=== PATIENT | female | born 1945 | race Caucasian/White ===

== ENCOUNTER 2016-11-05 10:17 | Outpatient (CLI) | payer MEDICARE, OTHER | END 2016-11-05 10:18 | disposition home or self-care (01) | DX: R00.0 Tachycardia, unspecified (principal); R53.83 Other fatigue ==

== ENCOUNTER 2018-08-20 13:15 | Outpatient (CLI) | payer MEDICARE, OTHER ==
--- NOTE | 2018-08-21 10:15 | DEXA Report ---
Reason: OSTEOPOROSIS Procedure Date: 08/20/2018 Accession Number: [id number] / [id number] Procedure: DEX - Dexa Spine and/or Hip CPT Code: FULL RESULT: EXAM: Dexa Spine and/or Hip DATE: 08/20/2018 1:44 PM CLINICAL HISTORY: OSTEOPOROSIS TECHNIQUE: Dual energy x-ray absorptiometry (DXA) was performed on a [employer] System. Regions measured are the AP Spine, femoral neck, and if needed forearm. COMPARISON: None. In accordance with the International Society for Clinical Densitometry (ISCD) guidelines, data from previous exams may be reanalyzed using current recommendations and techniques. This is done to allow a more accurate basis for comparison with the current study. FINDINGS: The data for the lumbar spine is as follows: BMD (g/cm/cm) T-SCORE Z-SCORE REGION L1 0.885 -2.0 -0.2 L2 1.134 -0.6 1.3 L3 1.186 -0.1 1.7 L4 1.093 -0.9 0.9 TOTAL 1.084 -0.8 1.0 NOTE: All evaluable vertebrae are used for classification The data for the hip is as follows: BMD (g/cm/cm) T-SCORE Z-SCORE REGION Neck 0.814 -1.6 0.2 TOTAL 0.783 -1.8 -0.1 NOTE: The femoral neck or total proximal femur, whichever is lowest, is used for classification. IMPRESSION: THE WHO CLASSIFICATION BASED ON THE INTERNATIONAL REFERENCE STANDARD IS OSTEOPENIA. THE FRACTURE RISK IS INCREASED. RECOMMENDATION: Patients with diagnosis of osteoporosis or osteopenia should have regular bone mineral density assessment. For those eligible for Medicare, routine testing is allowed once every 2 years. Testing frequency can be increased for patients who have rapidly progressing disease or for those who are receiving medical therapy to restore bone mass. COMMENT: World Health Organization (WHO) definitions for osteoporosis and osteopenia: NORMAL BMD: T-score at -1.0 or higher, fracture risk is low OSTEOPENIA BMD: T-score between -1.0 and -2.5, fracture risk is increased. OSTEOPOROSIS BMD: T-score at -2.5 or lower, fracture risk is high. National Osteoporosis Foundation recommends: 1. Obtain adequate dietary calcium (at least 1200 mg per day) and vitamin D (400-800 international units per day). 2. Participate, as appropriate, in regular weightbearing and muscle-strengthening exercise. 3. Avoid tobacco use and reduce alcohol and caffeine intake. 4. For more detailed information see the website at www.NOF.org.
== END 2018-08-20 13:16 | disposition home or self-care (01) ==
LOC: DI 13:15
PROVIDERS: ATTEND Family Medicine
DX: M85.89 Other specified disorders of bone density and structure, multiple sites (principal)
CPT/HCPCS: 77080

== ENCOUNTER 2018-08-20 13:17 | Outpatient (CLI) | payer MEDICARE, OTHER ==
--- NOTE | 2018-08-21 09:44 | Mammography Report ---
Reason: SCREENING MAMMO Procedure Date: 08/20/2018 Accession Number: [id number] / [id number] Procedure: ELEUTERIO - Screening Mammo w/Chuy CPT Code: FULL RESULT: EXAM: Screening Mammo w/Chuy DATE: 08/20/2018 1:59 PM CLINICAL HISTORY: Screening encounter. History of early menses. Family history of breast cancer in the mother at age 59 and a sister at age 70. History of benign left breast biopsy. TECHNIQUE: Bilateral CC and MLO views were obtained. COMPARISON: 09/14/2015 through 11/15/2009. FINDINGS: The breasts demonstrate scattered fibroglandular densities bilaterally. Postprocedural changes in the left breast are again seen. No suspicious masses, clustered microcalcifications, or regions of architectural distortion are identified. IMPRESSION: Benign findings RECOMMENDATION: Routine annual screening unless otherwise clinically indicated. BIRADS CATEGORY 2: Benign findings STANDARD QUALIFYING STATEMENTS: 1. This examination was not reviewed with the aid of Computer-Aided Detection (CAD). 2. A negative or benign imaging report should not delay biopsy if clinically suspicious findings are present. Consider surgical consultation if warrented. More than 5% of cancers are not identified by imaging. 3. Dense breasts may obscure an underlying neoplasm. 4. This examination was reviewed with the aid of 3D breast imaging (tomosynthesis).
== END 2018-08-20 13:18 | disposition home or self-care (01) ==
LOC: DI 13:17
PROVIDERS: ATTEND Family Medicine
DX: Z12.31 Encounter for screening mammogram for malignant neoplasm of breast (principal); Z80.3 Family history of malignant neoplasm of breast
CPT/HCPCS: 77063; 77067

== ENCOUNTER 2018-10-27 12:34 | Outpatient (CLI) | payer MEDICARE, OTHER ==
[2018-10-27 18:42] LABS: BASOPHILS # (AUTO) 0.1 10^3/uL (0.0-0.1); BASOPHILS % (AUTO) 0.7 %; EOSINOPHILS # (AUTO) 0.3 10^3/uL (0.0-0.7); EOSINOPHILS % (AUTO) 2.5 %; HGB - HEMOGLOBIN 15.5 g/dL (12.0-16.0); LYMPHOCYTES % (AUTO) 40.2 %; MEAN CORPUSCULAR HEMOGLOBIN 30.4 pg (27.0-31.0); MEAN CORPUSCULAR HGB CONC 33.3 g/dL (32.0-36.0); MEAN CORPUSCULAR VOLUME 91.4 fL (81.0-99.0); MONOCYTES # (AUTO) 0.6 10^3/uL (0.0-1.0); MONOCYTES % (AUTO) 6.4 %; NEUTROPHILS % (AUTO) 50.2 %; PLT - PLATELET COUNT 302 10^3/uL (130-450); RED BLOOD COUNT 5.08 10^6/uL (4.20-5.40); RED CELL DISTRIBUTION WIDTH 13.2 % (12.0-15.0); WHITE BLOOD COUNT 10.1 x10^3/uL (4.8-10.8)
[2018-10-27 19:31] LABS: VLDL CHOLESTEROL 31 mg/dL
[2018-10-27 19:32] LABS: ALBUMIN 3.9 g/dL (3.2-5.5); ALBUMIN/GLOBULIN RATIO 1.2 (1.0-2.2); ALKALINE PHOSPHATASE 95 IU/L (42-121); ALT ALANINE AMINOTRANSFERASE 32 IU/L (10-60); AST ASPARTATE AMINOTRANSFERASE 27 IU/L (10-42); BILIRUBIN,TOTAL 0.8 mg/dL (0.2-1.0); BUN - BLOOD UREA NITROGEN 19 mg/dL (6-20); CALCIUM 9.6 mg/dL (8.5-10.3); CARBON DIOXIDE - CO2 27 mmol/L (21-32); CHLORIDE 97 mmol/L (101-111); CHOL/HDL RATIO 2.8 (<4.4); CHOLESTEROL 196 mg/dL; CREATININE 0.8 mg/dL (0.4-1.0); GFR - MDRD 71 (>89); GLUCOSE 142 mg/dL (70-100); HDL CHOLESTEROL 71 mg/dL; LDL CHOLESTEROL,CALCULATED 94 mg/dL; LDL/HDL RATIO 1.3 (<4.4); SODIUM 139 mmol/L (135-145); TOTAL PROTEIN 7.1 g/dL (6.7-8.2)
== END 2018-10-27 12:35 | disposition home or self-care (01) ==
LOC: LAB.WCP 12:34
PROVIDERS: ATTEND Family Medicine
DX: R53.83 Other fatigue (principal); E78.5 Hyperlipidemia, unspecified
CPT/HCPCS: 36415; 80053; 80061; 83721; 84443; 85025

== ENCOUNTER 2018-11-06 15:14 | Outpatient (CLI) | payer MEDICARE, OTHER | END 2018-11-06 15:15 | disposition home or self-care (01) | LOC: LAB.WCP 15:14 | PROVIDERS: ATTEND Family Medicine | DX: R79.89 Other specified abnormal findings of blood chemistry (principal) | CPT/HCPCS: 36415; 84439; 84481; 86800 ==

== ENCOUNTER 2019-05-11 09:00 | Outpatient (CLI) | payer MEDICARE, OTHER | END 2019-05-11 23:59 | disposition home or self-care (01) | LOC: LAB.WCP 09:00 | PROVIDERS: ATTEND Family Medicine | DX: R94.6 Abnormal results of thyroid function studies (principal) | CPT/HCPCS: 36415; 84443 ==

== ENCOUNTER 2020-05-30 16:57 | Outpatient (CLI) | payer MEDICARE, OTHER ==
[2020-05-30 18:33] LABS: CALCIUM 9.3 mg/dL (8.5-10.3); CREATININE 0.9 mg/dL (0.4-1.0)
[2020-05-30 18:50] LABS: CREATININE,URINE 151.1 mg/dL; MICROALBUM/CREATININE RATIO,UR 75.4 ug/mg (<30.0); MICROALBUMIN,URINE 11.4 mg/dL (0-300.0)
[2020-05-30 19:58] LABS: HEMOGLOBIN A1c% 7.6 % (4.27-6.07)
== END 2020-05-30 23:59 | disposition home or self-care (01) ==
LOC: LAB.WCP 16:57
PROVIDERS: ATTEND Family Medicine
DX: E11.9 Type 2 diabetes mellitus without complications (principal)
CPT/HCPCS: 36415; 80048; 82043; 82570; 83036

== ENCOUNTER 2020-08-28 14:12 | Outpatient (CLI) | payer MEDICARE, OTHER ==
[2020-08-28 18:50] LABS: CALCIUM 9.5 mg/dL (8.5-10.3); CREATININE 1.1 mg/dL (0.4-1.0); POTASSIUM 3.9 mmol/L (3.5-5.0)
[2020-08-28 20:31] LABS: ESTIMATED AVERAGE GLUCOSE 166 mg/dL (70-100); HEMOGLOBIN A1c% 7.4 % (4.27-6.07)
== END 2020-08-28 23:59 | disposition home or self-care (01) ==
LOC: LAB.WCP 14:12
PROVIDERS: ATTEND Physician Assistant Medical
DX: E11.9 Type 2 diabetes mellitus without complications (principal)
CPT/HCPCS: 36415; 80048; 82043; 82570; 83036

== ENCOUNTER 2020-08-30 08:00 | Outpatient (CLI) | payer MEDICARE, OTHER ==
[2020-08-30 19:14] LABS: CREATININE,URINE 35.5 mg/dL; MICROALBUM/CREATININE RATIO,UR 8.5 ug/mg (<30.0); MICROALBUMIN,URINE 0.3 mg/dL (0-300.0)
== END 2020-08-30 23:59 | disposition home or self-care (01) ==
LOC: LAB.WCP 08:00
PROVIDERS: ATTEND Physician Assistant Medical
DX: E11.9 Type 2 diabetes mellitus without complications (principal)
CPT/HCPCS: 82043; 82570

== ENCOUNTER 2021-04-27 11:26 | Outpatient (CLI) | payer MEDICARE, OTHER ==
[2021-04-27 19:58] LABS: ESTIMATED AVERAGE GLUCOSE 160 mg/dL (70-100); HEMOGLOBIN A1c% 7.2 % (4.27-6.07)
== END 2021-04-27 23:59 | disposition home or self-care (01) ==
LOC: LAB.WCP 11:26
PROVIDERS: ATTEND Physician Assistant Medical
DX: E11.9 Type 2 diabetes mellitus without complications (principal)
CPT/HCPCS: 36415; 80053; 80061; 83036; 83721

== ENCOUNTER 2021-05-09 16:29 | Outpatient (CLI) | payer MEDICARE, OTHER ==
[2021-05-09 20:57] LABS: CALCIUM 9.8 mg/dL (8.5-10.3); CREATININE 0.9 mg/dL (0.4-1.0); POTASSIUM 5.2 mmol/L (3.5-5.0)
[2021-05-10 09:56] LABS: ALBUMIN 4.6 g/dL (3.2-5.5); ALBUMIN/GLOBULIN RATIO 1.4 (1.0-2.2); ALKALINE PHOSPHATASE 85 IU/L (42-121); ALT ALANINE AMINOTRANSFERASE 21 IU/L (10-60); AST ASPARTATE AMINOTRANSFERASE 22 IU/L (10-42); BILIRUBIN,TOTAL 0.5 mg/dL (0.2-1.0); BUN - BLOOD UREA NITROGEN 16 mg/dL (6-20); CALCIUM 9.9 mg/dL (8.5-10.3); CARBON DIOXIDE - CO2 27 mmol/L (21-32); CHLORIDE 100 mmol/L (101-111); CHOL/HDL RATIO 2.8 (<4.4); CHOLESTEROL 221 mg/dL; CREATININE 0.9 mg/dL (0.4-1.0); GFR - MDRD 61 (>89); GLUCOSE 111 mg/dL (70-100); HDL CHOLESTEROL 79 mg/dL; LDL CHOLESTEROL,CALCULATED 112 mg/dL; LDL/HDL RATIO 1.4 (<4.4); POTASSIUM 5.3 mmol/L (3.5-5.0); SODIUM 137 mmol/L (135-145); TOTAL PROTEIN 7.9 g/dL (6.7-8.2); TRIGLYCERIDES 152 mg/dL; VLDL CHOLESTEROL 30 mg/dL
== END 2021-05-09 16:30 | disposition home or self-care (01) ==
LOC: LAB.N 16:29
PROVIDERS: ATTEND Nurse Practitioner Family
DX: E11.9 Type 2 diabetes mellitus without complications (principal)
CPT/HCPCS: 36415; 80048; 80053; 80061; 83721

== ENCOUNTER 2021-10-30 12:36 | Outpatient (CLI) | payer MEDICARE, OTHER ==
--- NOTE | 2021-10-30 16:06 | Mammography Report ---
BILATERAL DIGITAL SCREENING MAMMOGRAM 3D/2D: 10/30/2021 CLINICAL: Routine screening. Comparison is made to exams dated: 08/20/2018 mammogram, 04/09/2016 mammogram, and 04/09/2012 mammogr am - [facility]. There are scattered fibroglandular elements in both breasts. No significant masses, calcifications, or other findings are seen in either breast. There has been no significant interval change. IMPRESSION: NEGATIVE There is no mammographic evidence of malignancy. A 1 year screening mammogram is recommended. This exam was interpreted at Station ID: [id number]. NOTE: For mammograms, a report in lay terms will be sent to the patient. Approximately 15% of breast malignancies will not be visualized mammographically. In the management of a palpable breast mass, a negative mammogram must not discourage biopsy of a clinically suspicious lesion. Electronically Signed By: hSarri al/joerad:10/30/2021 15:29:44 ACR BI-RADS Category 1: Negative 3341F PARENCHYMAL PATTERN: (A) - The breast(s) demonstrate(s) scattered fibroglandular densities. BI-RADS CATEGORY: (1) - 1 RECOMMENDATION: (ANNUAL) - Recommend routine annual screening mammography. [id number] 1 year screening LATERALITY: (B)
== END 2021-10-30 12:37 | disposition home or self-care (01) ==
LOC: DI.N 12:36
DX: Z12.31 Encounter for screening mammogram for malignant neoplasm of breast (principal)

== ENCOUNTER 2022-04-09 10:42 | Outpatient (CLI) | payer MEDICARE, OTHER ==
[2022-04-09 18:33] LABS: ALBUMIN 4.4 g/dL (3.2-5.5); ALBUMIN/GLOBULIN RATIO 1.5 (1.0-2.2); ALKALINE PHOSPHATASE 63 IU/L (42-121); ALT ALANINE AMINOTRANSFERASE 16 IU/L (10-60); AST ASPARTATE AMINOTRANSFERASE 21 IU/L (10-42); BILIRUBIN,TOTAL 0.7 mg/dL (0.2-1.0); BUN - BLOOD UREA NITROGEN 15 mg/dL (6-20); CALCIUM 9.7 mg/dL (8.5-10.3); CARBON DIOXIDE - CO2 28 mmol/L (21-32); CHLORIDE 103 mmol/L (101-111); CHOLESTEROL 183 mg/dL; CREATININE 0.9 mg/dL (0.4-1.0); GFR - MDRD 61 (>89); GLUCOSE 141 mg/dL (70-100); HDL CHOLESTEROL 62 mg/dL; LDL CHOLESTEROL,CALCULATED 96 mg/dL; LDL/HDL RATIO 1.5 (<4.4); POTASSIUM 4.3 mmol/L (3.5-5.0); SODIUM 140 mmol/L (135-145); TOTAL PROTEIN 7.4 g/dL (6.7-8.2); TRIGLYCERIDES 126 mg/dL; VLDL CHOLESTEROL 25 mg/dL
[2022-04-09 22:25] LABS: ESTIMATED AVERAGE GLUCOSE 157 mg/dL (70-100); HEMOGLOBIN A1c% 7.1 % (4.27-6.07)
== END 2022-04-09 10:43 | disposition home or self-care (01) ==
LOC: LAB.N 10:42
PROVIDERS: ATTEND Physician Assistant Medical
DX: E11.9 Type 2 diabetes mellitus without complications (principal)
CPT/HCPCS: 36415; 80053; 80061; 83036; 83721

== ENCOUNTER 2022-07-15 13:38 | Outpatient (CLI) | payer MEDICARE, OTHER ==
--- NOTE | 2022-07-15 15:01 | XRAY Report ---
PROCEDURE: ThoracoLumbar 2 View INDICATIONS: OSTEOPOROSIS TECHNIQUE: 2 views acquired of the thoracolumbar spine. COMPARISON: X-ray spine 11:15 FINDINGS: Bones: No acute fractures or dislocations. There is leftward scoliotic curvature with apex at L3 wi thin the lumbar spine. Multilevel degenerative disc space narrowing is present within the visualized thoracolumbar spine. It is most severe at L4-5 and L5-S1. Multilevel anterior osteophytes are present . Foraminal narrowing is most severe at L2-3, L4-5 and L5-S1. Visualized inferior ribs appear intact. No suspicious bony lesions. Soft tissues: No suspicious soft tissue calcifications. IMPRESSION: Multilevel degenerative changes as above. If detection for osteopenia/osteoporosis is desired, DEXA scan is recommended. Reviewed by: Kelly Sethi MD on 07/15/2022 2:59 PM PST Approved by: Kelly Sethi MD on 07/15/2022 2:59 PM PST Station ID: [id number]
== END 2022-07-15 13:39 | disposition home or self-care (01) ==
LOC: DI 13:38
PROVIDERS: ATTEND Family Medicine
DX: M47.816 Spondylosis without myelopathy or radiculopathy, lumbar region (principal); M47.817 Spondylosis without myelopathy or radiculopathy, lumbosacral region

== ENCOUNTER 2022-07-30 14:19 | Outpatient (CLI) | payer MEDICARE, OTHER ==
[2022-07-30 18:44] LABS: CALCIUM 10.6 mg/dL (8.5-10.3); CREATININE 0.8 mg/dL (0.4-1.0)
[2022-07-30 20:29] LABS: ESTIMATED AVERAGE GLUCOSE 160 mg/dL (70-100); HEMOGLOBIN A1c% 7.2 % (4.27-6.07)
== END 2022-07-30 14:20 | disposition home or self-care (01) ==
LOC: LAB.N 14:19
PROVIDERS: ATTEND Physician Assistant Medical
DX: R06.09 Other forms of dyspnea (principal); R00.0 Tachycardia, unspecified; R93.1 Abnormal findings on diagnostic imaging of heart and coronary circulation; E11.9 Type 2 diabetes mellitus without complications
CPT/HCPCS: 36415; 80048; 83036; 83880; 84484